=== PATIENT | female | born 1965 | race Two or more races ===

== ENCOUNTER → 2023-01-05 | Outpatient (CLI) | payer OTHER | END | disposition home or self-care (01) | LOC: NUCLEAR 09:56 | PROVIDERS: ATTEND Internal Medicine | DX: I11.9 Hypertensive heart disease without heart failure (principal); R00.2 Palpitations; R07.9 Chest pain, unspecified ==

== ENCOUNTER 2023-02-13 12:24 | Outpatient (CLI) | payer OTHER | END 2023-02-13 12:25 | disposition home or self-care (01) | LOC: NUCLEAR 12:24 | PROVIDERS: ATTEND Internal Medicine | DX: I11.9 Hypertensive heart disease without heart failure (principal); R00.2 Palpitations; R07.9 Chest pain, unspecified ==